=== PATIENT | female | born 1955 | race Caucasian/White ===

== ENCOUNTER 2016-07-25 11:03 | Emergency (ER) | payer BC, OTHER ==
[2016-07-25 12:01] VITALS: BP 123/78
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
== END 2016-07-25 12:34 | disposition home or self-care (01) ==
LOC: UCCORT 11:03
DX: J02.9 Acute pharyngitis, unspecified (principal); Z88.0 Allergy status to penicillin; E03.9 Hypothyroidism, unspecified
CPT/HCPCS: 87651; 99201; G0463

== ENCOUNTER 2018-06-30 17:46 | Emergency (ER) | payer BC ==
[2018-06-30 20:27] VITALS: BP 144/74
[2018-06-30] MEDS ORDERED: Azithromycin TAB* 250 MG PO ONE (20:48)
[2018-06-30] MEDS ORDERED: Benzonatate CAP* 100 MG PO ONE (20:48)
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
== END 2018-06-30 21:01 | disposition home or self-care (01) ==
LOC: UCCORT 17:46
DX: J40 Bronchitis, not specified as acute or chronic (principal); R05 Cough; J34.89 Other specified disorders of nose and nasal sinuses; Z88.0 Allergy status to penicillin; Z91.011 Allergy to milk products; Z91.018 Allergy to other foods
CPT/HCPCS: 99212; A9270-GY; G0463